=== PATIENT | male | born 1985 | race Two or more races ===

== ENCOUNTER 2024-06-20 18:32 | Emergency (ER) | payer MEDICAID, SELFPAY ==
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
[2024-06-20 18:48] VITALS: BP 136/89; PULSE 93; RESP 22; TEMP 36.4; O2SAT 99
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
[2024-06-20 19:41] VITALS: BMI 35.4
[2024-06-20 20:08] VITALS: BP 137/81; PULSE 87; RESP 22; TEMP 36.6; O2SAT 100
[2024-06-20] MEDS: HYDROcodone/APAP 5/325 TABLET 1 TAB PO (21:03)
[2024-06-20] MEDS: DIPHTH,PERTUSS(ACELL),TET VAC 0.5 ML VIAL IMi (21:19)
== END 2024-06-20 21:40 | disposition home or self-care (01) ==
LOC: SERX 20:56
PROVIDERS: Emergency Provider Emergency Medicine
DX: S71.131A Puncture wound without foreign body, right thigh, initial encounter (principal); W34.00XA Accidental discharge from unspecified firearms or gun, initial encounter; Y93.01 Activity, walking, marching and hiking; Z23 Encounter for immunization
CPT/HCPCS: 36415; 73700; 86850; 86900; 86901; 90471; 90715; 99284; A9270

== ENCOUNTER 2025-07-06 02:22 | Emergency (ER) | payer SELFPAY ==
[2025-07-06 02:23] VITALS: BMI 34.7
[2025-07-06 02:29] VITALS: BP 143/83; PULSE 98; RESP 18; TEMP 36.4; O2SAT 95
--- NOTE | 2025-07-06 02:42 | PD.EDURI ---
Upper Respiratory Inf. RME/HPI General Chief Complaint: Flu Like Symptoms Stated Complaint: SOB COUGH CONGESTION Time Seen by Provider: 07/06/25 02:37 Arrival date/time: 07/06/25 02:22 39M with no significant PMH presents to ED with several days of cough, congestion, and some wheezing. No official diagnosis of asthma, but he has needed inhalers before. Limitations: no limitations Related Data Previous Rx's ?Medication ?Instructions ?Recorded naproxen 500 mg tablet 500 mg PO BID PRN pain #30 tabs 06/09/23 albuterol sulfate 2.5 mg/3 mL 2.5 mg (3 mL) inhalation Q6H PRN 07/06/25 (0.083 %) solution for nebulization shortness of breath or wheezing #75 mL prednisone 50 mg tablet 50 mg PO QDAY 5 days #5 tabs 07/06/25 Allergies Allergy/AdvReac Type Severity Reaction Status Date / Time No Known Allergies Allergy Verified 07/06/25 02:26 Review of Systems Review of Systems Systems Reviewed: All systems reviewed, normal except as documented ENT Ears, Nose, Mouth, and Throat: Reports as per HPI and Reports nasal congestion Respiratory Respiratory: Reports as per HPI, Reports cough and Reports wheezing Allergic/Immunologic Allergic/Immunologic: Reports wheezing Past Medical History Past Medical History NEUROLOGIC: Negative Neurological Disorders CARDIAC: Negative Cardiac Disorders or Congestive Heart Failure RESPIRATORY: Negative Chronic Obstructive Pulmonary Disease (COPD) GASTROINTESTINAL: Positive Gastrointestinal Disorders GENITOURINARY: Negative Genitourinary Disorders or Renal Disease MUSCULOSKELETAL: Negative Musculoskeletal Disorders ENDOCRINE: Negative Diabetes Mellitus Type 1 or Diabetes Mellitus Type 2 Social History SMOKING STATUS: Current every day smoker SUBSTANCE USE: does not use ED Exam General Limitations: Present no limitations General appearance: Present alert and in no apparent distress Head Head exam: Present atraumatic Neck Neck exam: Present normal inspection, full ROM and trachea midline Chest Chest inspection: Present normal inspection and symmetric chest wall rise Respiratory Respiratory exam: Present wheezes Neurological Exam Neurological exam: Present alert and oriented X3 Psychiatric Psychiatric exam: Present normal affect and normal mood Skin Skin exam: Present warm, dry, intact and normal color Course Quality Measures none Orders Category Date Time Status Albuterol/Ipratr Rt Naial [Duoneb Rt Naila] Med 07/06/25 02:38 Discontinued 3 ml INH X1 ONE Albuterol/Ipratr Rt Naila [Duoneb Rt Naila] Med 07/06/25 03:45 Discontinued 3 ml INH X1 ONE Budesonide Rt [Pulmicort Rt Naila] Med 07/06/25 03:45 Discontinued 0.5 mg INH X1 ONE dexAMETHasone INJ [Decadron Inj] Med 07/06/25 02:38 Discontinued 10 mg PO X1 ONE Vital Signs Vital signs: Vital Signs Temperature 97.6 F 07/06/25 02:29 Pulse Rate 98 07/06/25 02:29 Respiratory Rate 18 07/06/25 02:29 Blood Pressure 143/83 H 07/06/25 02:29 Pulse Oximetry (%) 95 07/06/25 02:29 Oxygen Delivery Method Room Air 07/06/25 02:29 O2 at 95% on RA and WNLs Upper Respiratory Infection MDM Narrative MDM Narrative:: 39M with no significant PMH presents to ED with several days of cough, congestion, and some wheezing. No official diagnosis of asthma, but he has needed inhalers before. Physical exam reveals wheezing in lungs. Patient is afebrile, calm, and alert. Meds relieved wheezing. Patient data External records reviewed:: [facility] previous records Clinical information provided by:: patient Social determinants that could affect healthcare access:: substance use Patient has the following chronic illnesses:: none How is presenting disease/condition affected by chronic disease/condition?: no chronic disease Evaluation data The following diagnostics were reviewed and interpreted by me:: other (specify) (none) Lab and/or radiology exams considered but not ordered:: not ordered Interpretation Summary: n/a Medications / Prescriptions Medications or Prescriptions considered but not ordered:: ordered Medication administrations:: Medication Administration History Discontinued Medications Albuterol/Ipratropium (Albuterol/Ipratropium (Duoneb) Rt Naila 3 Ml Nebu) 3 ml INH X1 ONE Stop: 07/06/25 02:39 Last Admin: 07/06/25 02:46 Dose: 3 ml Documented By: MAHIN Albuterol/Ipratropium (Albuterol/Ipratropium (Duoneb) Rt Naila 3 Ml Nebu) 3 ml INH X1 ONE Stop: 07/06/25 03:46 Last Admin: 07/06/25 03:56 Dose: 3 ml Documented By: MAHIN Budesonide (Budesonide Rt 0.5 Mg/2 Ml Nebu) 0.5 mg INH X1 ONE Stop: 07/06/25 03:46 Last Admin: 07/06/25 03:56 Dose: 0.5 mg Documented By: MAHIN Dexamethasone Sodium Phosphate (Dexamethasone Sod Phos Inj 10 Mg/Ml Vial) 10 mg PO X1 ONE Stop: 07/06/25 02:39 Last Admin: 07/06/25 02:56 Dose: 10 mg Documented By: NOMI Comments: po above Consultations Consultation(s) initiated? (list below): No Diagnosis Upper Respiratory Differential Diagnosis: upper respiratory infection, croup, otitis media, sinusitis, viral infection, bronchitis, influenza, pharyngitis and other (RAD) Most likely diagnosis given after review of the tests above:: URI and RAD Admission Indicated Admission indicated?: not indicated Admission Request Was there a request for admission?: No Disposition Plan Disposition Plan: Discharge Discharge Attestation Discharge Attestation: The patient and all family members were given an opportunity to ask questions and understood the discharge instructions. Discharge instructions specifically effects, indications for sooner follow up or return to the emergency department, and the expected course of current diagnosis. Patient condition: Stable Discharge Plan Plan Patient Disposition: HOME (Self Care) Discharge Disposition comment: Stable Prescriptions/Referrals Prescriptions/Med Rec: New prednisone 50 mg tablet 50 mg PO QDAY 5 Days Qty: 5 0RF albuterol sulfate 2.5 mg /3 mL (0.083 %) solution for nebulization 2.5 mg inhalation Q6H PRN (Reason: shortness of breath or wheezing) Qty: 75 0RF No Action naproxen 500 mg tablet 500 mg PO BID PRN (Reason: pain) Qty: 30 0RF Problem List Clinical Impression: Upper respiratory infection, RAD (reactive airway disease) Patient/Caregiver Discharge Instructions Education Materials: ED URI, Viral W/ Wheezing (Adult) Additional Instructions: Please follow-up with PCP within 24-48 hours and return immediately if symptoms worsen. Ibuprofen/Tylenol can be used simultaneously for greater fever/pain control. Keep hydrated. Advance diet as tolerated. When you are no longer ill, see PCP for official asthma testing/diagnosis. Print Language: Greenlandic Stand Alone Forms: Patient Portal Info Letter PA/ANIMAL CARE SUPERVISOR Supervising Physician PA/ANIMAL CARE SUPERVISOR Supervising Physician: Dr. Graham
[2025-07-06] MEDS: ALBUTEROL/IPRATROPIUM (Duoneb) RT SOL 3 ML NEBU INH ×2 (02:46→03:56)
[2025-07-06 02:50] VITALS: PULSE 95; RESP 20; O2SAT 95
[2025-07-06] MEDS: BUDESONIDE RT 0.5 MG/2 ML NEBU INH (03:56)
[2025-07-06 03:58] VITALS: PULSE 90; RESP 20; O2SAT 97
== END 2025-07-06 04:25 | disposition home or self-care (01) ==
LOC: SERX 04:27
PROVIDERS: Emergency Provider Emergency Medicine
DX: J06.9 Acute upper respiratory infection, unspecified (principal); J45.909 Unspecified asthma, uncomplicated
CPT/HCPCS: 94640; 99283; A9270; J1100